=== PATIENT | male | born 1995 | race Caucasian/White ===

== ENCOUNTER 2019-11-15 14:08 | Emergency (ER) | payer BC, SELFPAY ==
[2019-11-15] MEDS ORDERED: Boostrix 0.5 ML VIAL ONE (15:33)
[2019-11-15] MEDS ORDERED: Bacitracin 1 PK ONE (16:17)
== END 2019-11-15 16:37 | disposition home or self-care (01) ==
LOC: ERS 14:08
DX: S61.301A Unspecified open wound of left index finger with damage to nail, initial encounter (principal); F17.210 Nicotine dependence, cigarettes, uncomplicated; W26.0XXA Contact with knife, initial encounter
CPT/HCPCS: 90471; 90715